=== PATIENT | female | born 1990 | race Hispanic/Latino ===

== ENCOUNTER 2019-02-26 20:34 | Emergency (ER) | payer OTHER, SELFPAY ==
[2019-02-26 20:38] VITALS: BP 126/75; PULSE 99; RESP 15; TEMP 36.8; O2SAT 98; BMI 25.2
--- NOTE | 2019-02-26 21:19 | PC.NURSE ---
reports coughing up yellow sputum
--- NOTE | 2019-02-26 21:54 | ED.URI ---
HPI - URI/Sore Throat General Chief Complaint: Upper Respiratory Symptoms Stated Complaint: Sinus infection Time Seen by Provider: 02/26/19 21:47 Source: patient Mode of arrival: Ambulatory Limitations: no limitations History of Present Illness HPI Narrative: 29-year-old female here for evaluation of sinus congestion, frontal sinus pain, sore throat, no cough. No fevers. Symptoms have been going on for the past couple days. She has used Sudafed without any improvement. Also has used TheraFlu and Mucinex. She states she has a sinus infection. Related Data Previous Rx's Medication Instructions Recorded prednisone 20 mg PO DAILY 4 Days #4 tab 02/26/19 Allergies Allergy/AdvReac Type Severity Reaction Status Date / Time No Known Drug Allergies Allergy Verified 02/26/19 20:46 Review of Systems Constitutional Constitutional: Denies fever(s) and Denies headache(s) ENT Ears, Nose, Mouth, and Throat: Denies dental pain, Denies vertigo, Denies dizziness, Denies ear discharge, Reports facial pain, Denies headache(s), Reports nasal congestion, Reports nasal discharge, Denies disequilibrium, Denies tinnitus, Reports sinus pressure and Reports sore throat Cardiovascular Cardiovascular: Denies chest pain and Denies dyspnea Respiratory Respiratory: Denies dyspnea Gastrointestinal Gastrointestinal: Denies vomiting Integumentary/Breasts Skin/Breast: Denies lesions and Denies rash Neurologic Neurologic: Denies behavioral changes, Denies vertigo, Denies dizziness, Denies headache(s) and Denies disequilibrium Psychiatric Psychiatric: Denies behavioral changes Patient History Medical History Healthy adult (Acute) Social History Smoking Status: Unknown if ever smoked Smoking Status: Unknown if ever smoked alcohol intake frequency: holidays/special occasions only Substance Use Type: does not use Exam Initial Vital Signs Initial Vital Signs: Vital Signs Temperature 98.2 F 02/26/19 20:38 Pulse Rate 99 H 02/26/19 20:38 Respiratory Rate 15 02/26/19 20:38 Blood Pressure 126/75 02/26/19 20:38 Pulse Oximetry 98 02/26/19 20:38 Const General: cooperative, comfortable, well developed and well groomed Orientation: alert, awake and oriented x3 HENMT Head: normal to inspection and normocephalic Ears: TM's normal bilaterally Nose: external nose normal Face and sinus: sinuses nontender Mouth: oral mucosae normal Teeth and gingiva: dentition normal Resp Effort & Inspection: normal respiratory effort Auscultation: clear to auscultation bilaterally Cardio Rate: regular rate Rhythm: regular rhythm Skin Lesions: no lesions Rashes: no rashes Neuro General: alert, awake and oriented x3 Cognition: normal cognition Speech: speech normal Sensory Exam: no sensory deficits noted Extrem General: normal to inspection and capillary refill normal Psych Appearance: grossly normal and well kempt Course Vital Signs Vital signs: Vital Signs - 8 hr 02/26/19 20:38 02/26/19 22:09 Temperature 98.2 F 98.0 F Pulse Rate 99 H 88 Respiratory Rate 15 14 Blood Pressure 126/75 121/77 Pulse Oximetry 98 99 MDM - URI/Sore Throat MDM Narrative Medical decision making narrative: Patient is nontoxic. Has a normal exam. Does have symptoms of an upper respiratory infection. Has only had the symptoms for the past couple days. Has not been on daily antihistamine/decongestants. I did inform the patient that she does not meet criteria for antibiotics. Did inform her these are most likely viral infections. We did discuss the use of a second-generation antihistamine and nasal sprays. Patient seem upset about this. She stated that she felt like she needed antibiotics. I once again informed her that she does not meet criteria for sinusitis. Order that she should be taking other non antibiotic treatment. Will give her prednisone to see if this improves her symptoms. She was given return precautions. Discharge Plan Departure Patient Disposition: Home Clinical Impression: Upper respiratory infection Qualifiers: URI type: unspecified URI Qualified Code(s): J06.9 - Acute upper respiratory infection, unspecified Discharge Date/Time: 02/26/19 22:11 Instructions: Amoxicillin Does Not Appear Effective for Acute Maxillary Sinusitis, Antihistamine/Decongestant (By mouth) Activity Restrictions/Additional Instructions: Recommend that you start on a antihistamine such as Claritin or Malena or Zyrtec. You can buy these [id number]. You can use the generic version of his medications. I also recommend you start a nasal spray such as Flonase or Nasonex. The generic version of these is okay as well. Contact your primary provider for follow-up. Prescriptions: New prednisone 20 mg tablet 20 mg PO DAILY 4 Days Qty: 4 RF: 0
[2019-02-26 22:09] VITALS: BP 121/77; PULSE 88; RESP 14; TEMP 36.7; O2SAT 99
== END 2019-02-26 22:11 | disposition home or self-care (01) ==
PROVIDERS: Emergency Provider Emergency Medicine
DX: J06.9 Acute upper respiratory infection, unspecified (principal)
CPT/HCPCS: 99282

== ENCOUNTER → 2019-11-13 09:07 | Outpatient (CLI) | payer OTHER, SELFPAY ==
[2019-11-13 09:42] LABS: Add Manual Diff / Slide Review NO; Basophils Absolute Auto 100 /uL (0-100); Basophils Percent Auto 0.8 % (0-2); Eosinophils Absolute Auto 300 /uL (0-450); Eosinophils Percent Auto 4.3 % (2-4); Hematocrit 36.8 % (36-46); Hemoglobin 12.1 g/dL (12.0-16.0); Lymphocytes Absolute Auto 1600 /uL (1100-4500); Lymphocytes Percent Auto 26.2 % (25-40); Mean Corpuscular HGB Conc 32.9 % (30-36); Mean Corpuscular Hemoglobin 27.9 PG (26-34); Mean Corpuscular Volume 84.9 fL (80-100); Monocytes Absolute Auto 400 /uL (0-900); Monocytes Percent Auto 7.2 % (3-14); Neutrophils Absolute Auto 3700 /uL (1500-7000); Neutrophils Percent Auto 61.5 % (50-75); Platelet Count 201 X10^3/uL (150-400); Red Blood Cell Count 4.33 X10^6/uL (4.0-5.2); Red Cell Distribution Width 13.8 % (11.6-14.8)
[2019-11-13 10:08] LABS: Alanine Aminotransferase 35 IU/L (<35); Albumin 4.7 g/dL (3.5-5.0); Albumin Globulin Ratio 1.7 (1.0-2.8); Alkaline Phosphatase 49 U/L (38-126); Aspartate Aminotransferase 33 IU/L (14-36); Bilirubin Total 0.8 mg/dL (0.2-1.3); Blood Urea Nitrogen 18 mg/dL (7-17); Calcium 9.4 mg/dL (8.4-10.2); Carbon Dioxide 28 mmol/L (22-32); Chloride 105 mmol/L (98-107); Cholesterol 188 mg/dL (140-199); Estimated Glomerular Filt Rate > 60.0 mL/min (>60); Globulin 2.8 g/dL (1.7-4.1); Glucose 87 mg/dL (70-100); HDL Cholesterol 79 mg/dL (40-60); HEMOLYSIS < 15 (0-50); LDL Cholesterol Calculated 102 mg/dL (<100); Potassium 4.3 mmol/L (3.4-5.1); Sodium 137 mmol/L (137-145); Total Protein 7.5 g/dL (6.3-8.2); Triglycerides 34 mg/dL (35-150)
[2019-11-13 10:41] LABS: TSH w/ Reflex to FT4 1.28 uIU/mL (0.47-4.68)
== END ==
PROVIDERS: PCP Registered Nurse Diabetes Educator; Referring Provider Registered Nurse Diabetes Educator; Visit Provider Registered Nurse Diabetes Educator
DX: R00.2 Palpitations (principal); F41.9 Anxiety disorder, unspecified; Z00.00 Encounter for general adult medical examination without abnormal findings
CPT/HCPCS: 36415; 80053; 80061; 84443; 85025